=== PATIENT | male | born 1980 | race Two or more races ===

== ENCOUNTER 2017-02-06 08:57 | Observation (INO) | payer OTHER ==
[2017-02-06] VITALS (9 sets, daily range): BP systolic 127–151; BP diastolic 69–101; PULSE 52–95; RESP 16–20; TEMP 97.1–98; O2SAT 9–99
[~2017-02-06] VITALS: Ht 188 cm; Wt 114.5 kg
[~2017-02-06 08:57] MED LIST: COLC1TAB7 PO
[2017-02-06] MEDS ORDERED: SODIUM CHLOR 0.9% 1000 ML INJ 1,000 ML IV ONE (09:00)
--- NOTE | 2017-02-06 09:04 | PD ---
HPI Chief Complaint: Stroke Alert Time Seen by Provider: 09:00 Travel History International Travel<30 days: No Contact w/Intl Traveler<30days: No Traveled to known affect area: No History of Present Illness HPI PER PATIENT DIFFICULTY SPEAKING/SLURRED SPEECH 1HR AGO, DENIES ANY OTHER SYMPTOMS (DENIES ELLIOTT, LOC, DRUG USE, OR LATERALIZING WEAKNESS). PMH ONLY POSITIVE FOR PREDIABETIC PSH NEG ALL NEG PFSH Past Medical History Anxiety: Yes Heart Rhythm Problems: No (APPROX 1 YR AGO HAS FELT HEART RATE INCREASE, ABOUT EVERY OTHER MONTH) Cardiac Catheterization: No Cardiovascular Problems: No High Cholesterol: No Congestive Heart Failure: No Diabetes: No Diminished Hearing: No Hypertension: No Myocardial Infarction: No ?: Not Past Surgical History Coronary Artery Bypass Graft: No Social History Alcohol Use: No Tobacco Use: Yes Allergies-Medications (Allergen,Severity, Reaction): Coded Allergies: No Known Allergies (Verified , 02/06/17) Reported Meds & Prescriptions Reported Meds & Active Scripts Active Reported Dicyclomine (Dicyclomine HCl) 10 Mg Cap 10 Mg PO BID Ranitidine (Ranitidine HCl) 150 Mg Tab 150 Mg PO DAILY Review of Systems Except as stated in HPI: all other systems reviewed are Neg Neurologic: Positive: Slurred Speech Physical Exam Narrative GENERAL: SKIN: Warm and dry. HEAD: Atraumatic. Normocephalic. EYES: Pupils equal and round. No scleral icterus. No injection or drainage. NO DEFICITS BY CONFRONTATION ENT: No nasal bleeding or discharge. Mucous membranes pink and moist. NECK: Trachea midline. No JVD. CARDIOVASCULAR: Regular rate and rhythm. RESPIRATORY: No accessory muscle use. Clear to auscultation. Breath sounds equal bilaterally. GASTROINTESTINAL: Abdomen soft, non-tender, nondistended. Hepatic and splenic margins not palpable. MUSCULOSKELETAL: Extremities without clubbing, cyanosis, or edema. No obvious deformities. NEUROLOGICAL: Awake and alert. No obvious cranial nerve deficits. Motor grossly within normal limits. Five out of 5 muscle strength in the arms and legs. Normal speech. PSYCHIATRIC: Appropriate mood and affect; insight and judgment normal. Data Data Last Documented VS Vital Signs Date Time Temp Pulse Resp B/P Pulse Ox O2 Delivery O2 Flow Rate FiO2 02/06/17 10:32 70 18 127/69 99 Nasal Cannula 2 02/06/17 08:59 98.0 02/06/17 08:55 21 Orders Cath For Specimen (02/06/17 09:00) Neuro Checks Q2HX12,Q4H (02/06/17 09:00) Nursing Bedside Swallow Assess .ONCE (02/06/17 09:00) Activity Bed Rest (02/06/17 09:00) Diet Npo (02/06/17 Breakfast) Prothrombin Time / Inr (Pt) (02/06/17 09:00) Act Partial Throm Time (Ptt) (02/06/17 09:00) Complete Blood Count With Diff (02/06/17 09:00) Basic Metabolic Panel (Bmp) (02/06/17 09:00) Fibrinogen (02/06/17 09:00) Creatine Kinase (Cpk) (02/06/17 09:00) Troponin I (02/06/17 09:00) Drug Screen, Random Urine (02/06/17:00) Type And Screen (02/06/17 09:00) Ct Brain W/O Iv Contrast(Rout) (02/06/17 ) Cta Brain W Iv Contrast W 3d (02/06/17 09:00) Cta Neck W Iv Contrast W 3d (02/06/17 09:00) Chest, Single Ap (02/06/17 ) Electrocardiogram (02/06/17 ) Consult Neurology (02/06/17 09:00) Sodium Chlor 0.9% 1000 Ml Inj (Ns 1000 M (02/06/17 09:00) Blood Glucose (02/06/17 09:00) Ecg Monitoring (02/06/17 09:00) Iv Access Insert/Monitor (02/06/17 09:00) NPO (02/06/17 09:00) Oximetry (02/06/17 09:00) Oxygen Administration (02/06/17 09:00) Resp Oxygen Daniel C Titrat 1-4 L (02/06/17 09:00) Sodium Chlor 0.9% 1000 Ml Inj (Ns 1000 M (02/06/17 09:11) Aspirin (Aspirin) (02/06/17 09:15) Anti-Thrombin, Functional (02/06/17 09:15) Cardiolipin Abs Igg,Igm,Iga (02/06/17 09:15) Protein C Activity (02/06/17 09:15) Protein S Activity (02/06/17 09:15) Factor V (5) Mutation (Leiden) (02/06/17 09:15) Prothrombin [id number] Mutation (02/06/17 09:15) Lupus Anticoagulant Drvvt (02/06/17 09:15) Factor Viii (8) Activity Ref (02/06/17 09:15) Folate, Serum (02/06/17 09:15) Westergren Sedimentation Rate (02/06/17 09:15) Rapid Plasma Regin (Rpr) W Ttr (02/06/17 09:15) Nelda Screen (02/06/17 09:15) Thyroid Stimulating Hormone (02/06/17 09:15) Free Thyroxine (T4) (02/06/17 09:15) Vitamin B12 (02/06/17 09:15) Urinalysis - C+S If Indicated (02/06/17 09:15) Mri Brain W&W/O Contrast (02/06/17 09:15) Eeg Study (02/06/17 09:15) Echo 2d Comp With Doppler (02/06/17 09:15) Holter Monitor Recording (02/06/17 09:15) Test Tech / Telemetry LISA.Q8H (02/06/17 09:15) [place] (02/06/17 09:15) ^ Other Nursing Orders (02/06/17 09:15) Sodium Chlor 0.9% 1000 Ml Inj (Ns 1000 M (02/06/17 09:15) Lipid Profile (02/06/17 09:15) Scd&Teds Bilateral/Knee High LISA.QSHIFT (02/06/17 09:15) CKMB (02/06/17 09:00) CKMB% (02/06/17 09:00) (Hub Use Only)Inp Phy Cons/Ref (02/06/17 ) Iodixanol 320 Inj (Rad Ct) (Visipaque 32 (02/06/17 09:25) Admit Order (Ed Use Only) (02/06/17 10:29) Labs Laboratory Tests Test 02/06/17 02/06/17 09:00 09:40 White Blood Count 6.5 TH/MM3 Red Blood Count 5.47 MIL/MM3 Hemoglobin 15.5 GM/DL Hematocrit 46.0 % Mean Corpuscular Volume 84.2 FL Mean Corpuscular Hemoglobin 28.4 PG Mean Corpuscular Hemoglobin 33.7 % Concent Red Cell Distribution Width 13.7 % Platelet Count 302 TH/MM3 Mean Platelet Volume 7.5 FL Neutrophils (%) (Auto) 66.8 % Lymphocytes (%) (Auto) 20.5 % Monocytes (%) (Auto) 8.1 % Eosinophils (%) (Auto) 3.3 % Basophils (%) (Auto) 1.3 % Neutrophils # (Auto) 4.4 TH/MM3 Lymphocytes # (Auto) 1.3 TH/MM3 Monocytes # (Auto) 0.5 TH/MM3 Eosinophils # (Auto) 0.2 TH/MM3 Basophils # (Auto) 0.1 TH/MM3 CBC Comment DIFF FINAL Differential Comment Erythrocyte Sedimentation Rate 1 mm/hr Prothrombin Time 11.3 SEC Prothromb Time International 1.0 RATIO Ratio Activated Partial 29.1 SEC Thromboplast Time Fibrinogen 335 mg/dL Sodium Level 138 MEQ/L Potassium Level 3.9 MEQ/L Chloride Level 107 MEQ/L Carbon Dioxide Level 26.0 MEQ/L Anion Gap 5 MEQ/L Blood Urea Nitrogen 15 MG/DL Creatinine 1.10 MG/DL Estimat Glomerular Filtration 76 ML/MIN Rate Random Glucose 126 MG/DL Calcium Level 8.2 MG/DL Total Creatine Kinase 321 U/L Creatine Kinase MB 2.4 NG/ML Creatine Kinase MB % 0.7 % Troponin I LESS THAN 0.02 NG/ML Blood Type A POSITIVE Antibody Screen NEGATIVE Blood Bank Comment Triglycerides Level 50 MG/DL Cholesterol Level 98 MG/DL LDL Cholesterol 54 MG/DL HDL Cholesterol 34.2 MG/DL Cholesterol/HDL Ratio 2.86 RATIO Vitamin B12 Level 513 PG/ML Folate 17.4 NG/ML Free Thyroxine 1.03 NG/DL Thyroid Stimulating Hormone 0.754 uIU/ML 3rd Gen Rapid Plasma Reagin NON-REACTIVE MDM Medical Decision Making Medical Screen Exam Complete: Yes Emergency Medical Condition: Yes Medical Record Reviewed: Yes Interpretation(s) SINUS [place] 57, J POINT ELEVATION, NO ELECTRICAL ALTERNANT, NO LOW VOLTAGE FINDINGS, NO RECIPROCAL CHANGES/NO STEMI PATTERN Differential Diagnosis HYPOGLYCEMIA V ICH V CVA V DRUG INDUCED Narrative Course tox screen neg, neg hypoglycemia, and ct is neg for ich, patient showed marked improvement within hour Physician Communication Physician Communication D/W DR GARCIA (NEUROLOGIST), CURRENTLY BASED ON FINDINGS, NO TPA....AT 1000 PATIENT'S SLURRED SPEECH MUCH CLEARER AND NEARLY BACK TO BASELINE PER PATIENT, CONTINUES TO HAVE NO OTHER DEFICIT AT THIS POINT. Diagnosis Primary Impression: SLURRED SPEECH IMPROVING Admitting Information Admitting Physician Requests: Observation Migel Cristina MD Feb 06, 2017 09:04
[2017-02-06 09:07] LABS: AUTOMATED NEUTROPHIL # 4.4 TH/MM3 (1.8-7.7); BASOPHIL # 0.1 TH/MM3 (0-0.2); BASOPHIL % 1.3 % (0.0-2.0); EOSINOPHIL # 0.2 TH/MM3 (0-0.4); EOSINOPHIL % 3.3 % (0.0-4.0); HEMO FLAGS DIFF FINAL; LYMPH % 20.5 % (9.0-44.0); LYMPHOCYTE # 1.3 TH/MM3 (1.0-4.8); MEAN CELL VOLUME 84.2 FL (80.0-100.0); MEAN CORPUSCULAR HEMOGLOBIN 28.4 PG (27.0-34.0); MEAN CORPUSCULAR HGB CONC 33.7 % (32.0-36.0); MONO % 8.1 % (0.0-8.0); NEUT % 66.8 % (16.0-70.0); PLATELET COUNT 302 TH/MM3 (150-450); RED BLOOD COUNT 5.47 MIL/MM3 (4.50-5.90); RED CELL DISTRIBUTION WIDTH 13.7 % (11.6-17.2); WHITE BLOOD COUNT 6.5 TH/MM3 (4.0-11.0)
[2017-02-06] MEDS ORDERED: SODIUM CHLOR 0.9% 1000 ML INJ 1,000 ML IV SCH ×2 (09:11→09:15)
[2017-02-06 09:13] LABS: CHLORIDE 107 MEQ/L (98-107); POTASSIUM 3.9 MEQ/L (3.5-5.1); SODIUM (NA) 138 MEQ/L (136-145)
[2017-02-06] MEDS ORDERED: ASPIRIN 325 MG TAB PO ONE (09:15)
[2017-02-06 09:16] LABS: ANION GAP 5 MEQ/L (5-15); BLOOD UREA NITROGEN 15 MG/DL (7-18)
[2017-02-06 09:18] LABS: APTT (PATIENT) 29.1 SEC (24.3-30.1); PROTHROMBIN TIME - PATIENT 11.3 SEC (9.8-11.6)
[2017-02-06 09:19] LABS: GLOMERULAR FILTRATION RATE 76 ML/MIN (>89)
--- NOTE | 2017-02-06 09:20 | RADRPT ---
EXAM DATE/TIME: 02/06/2017 08:54 [facility] COMPARISON: No previous studies available for comparison. INDICATIONS : Stroke alert. Aphasia. Left side weakness. RADIATION DOSE: 66.27 CTDIvol (mGy) MEDICAL HISTORY : None SURGICAL HISTORY : None. ENCOUNTER: Initial ACUITY: 1 day PAIN SCALE: 0/10 LOCATION: cranial TECHNIQUE: Multiple contiguous axial images were obtained of the head. Using automated exposure control and adj ustment of the mA and/or kV according to patient size, radiation dose was kept as low as reasonably a chievable to obtain optimal diagnostic quality images. DICOM format image data is available electro nically for review and comparison. FINDINGS: CEREBRUM: The ventricles are normal for age. No evidence of midline shift, mass lesion, hemorrhage or acute in farction. No extra-axial fluid collections are seen. POSTERIOR FOSSA: The cerebellum and brainstem are intact. The 4th ventricle is midline. The cerebellopontine angle i s unremarkable. EXTRACRANIAL: The visualized portion of the orbits is intact. SKULL: The calvaria is intact. No evidence of skull fracture. CONCLUSION: Normal examination for a patient of this age. Jeison Maravilla MD on February 06, 2017 at 9:15 Board Certified Radiologist. This report was verified electronically.
[2017-02-06 09:22] LABS: CREATINE KINASE 321 U/L (39-308)
[2017-02-06] MEDS ORDERED: IODIXANOL 320 MG/ML 10 ML VIAL (for Rad CT) IV ONE (09:25)
--- NOTE | 2017-02-06 09:56 | RADRPT ---
EXAM DATE/TIME: 02/06/2017 09:27 [facility] COMPARISON: No previous studies available for comparison. INDICATIONS : Stroke alert.Aphasia. Left side weakness. MEDICAL HISTORY : None. SURGICAL HISTORY : None. ENCOUNTER: Initial ACUITY: 1 day PAIN SCORE: 0/10 LOCATION: Bilateral chest FINDINGS: Portable AP view of the chest demonstrates a normal-sized cardiac silhouette. No effusion, consolidat ion, or pneumothorax is visualized. The bones and soft tissues demonstrate no acute abnormality. CONCLUSION: No acute cardiopulmonary abnormality is identified. Cristi Coronado MD on February 06, 2017 at 9:40 Board Certified Radiologist. This report was verified electronically.
--- NOTE | 2017-02-06 09:58 | RADRPT ---
EXAM DATE/TIME: 02/06/2017 09:04 [facility] COMPARISON: No previous studies available for comparison. INDICATIONS : Stroke alert. Aphasia. Left sided weakness. IV CONTRAST: 100 cc Visipaque (iodixanol) IV ; Cumulative dose for multiple exams. RADIATION DOSE: 42.24 CTDIvol (mGy) ; Combined studies MEDICAL HISTORY : None SURGICAL HISTORY : None. ENCOUNTER: Initial ACUITY: 1 day PAIN SCALE: 0/10 LOCATION: neck Elevated flow velocities and ICA/CCA ratios have been found to correlate with increased degrees of vessel stenosis, calculated as percentage of diameter relative to a normal segment of distal ICA/CCA. TECHNIQUE: Volumetric scanning was performed using a multirow detector CT scanner. The data was post processed with a variety of visualization algorithms including full-volume maximum intensity projection, multip lanar sliding thin-slab reformation, curved-planar reformation, and surface-rendering techniques. Us ing automated exposure control and adjustment of the mA and/or kV according to patient size, radiatio n dose was kept as low as reasonably achievable to obtain optimal diagnostic quality images. DICOM f ormat image data is available electronically for review and comparison. FINDINGS: AORTIC ARCH: There is a three-vessel origin of the great vessels from the aorta. No evidence of ostial narrowing. RIGHT CAROTID: The common carotid artery is intact. The carotid bulb has a normal configuration without ulceration o r narrowing. The internal carotid artery lumen is smooth without stenosis. The external carotid keila ry is intact. LEFT CAROTID: The common carotid artery is intact. The carotid bulb has a normal configuration without ulceration or narrowing. The internal carotid artery lumen is smooth without stenosis. The external carotid ar rosalinda is intact. VERTEBRALS: The vertebral arteries have a symmetric diameter. Portions of the proximal right vertebral artery ar e obscured due to dense contrast in the adjacent vein. No stenotic lesions are seen. CONCLUSION: 1. Unremarkable CTA examination. No significant flow-limiting stenosis or dissection. Higinio Mirza MD on February 06, 2017 at 9:51 Board Certified Radiologist. This report was verified electronically.
--- NOTE | 2017-02-06 10:01 | RADRPT ---
EXAM DATE/TIME: 02/06/2017 09:04 [facility] COMPARISON: No previous studies available for comparison. INDICATIONS : Stroke alert. Aphasia. Left sided weakness. IV CONTRAST: 100 cc Visipaque (iodixanol) IV ; Cumulative dose for multiple exams. RADIATION DOSE: 42.24 CTDIvol (mGy) ; Combined studies MEDICAL HISTORY : None SURGICAL HISTORY : None. ENCOUNTER: Initial ACUITY: 1 day PAIN SCALE: 0/10 LOCATION: cranial TECHNIQUE: Volumetric scanning was performed using a multi-row detector CT scanner. The data was post processed with a variety of visualization algorithms including full volume maximum intensity projection, multi -planar sliding thin slab reformation, curved planar reformation, and surface rendering techniques. Using automated exposure control and adjustment of the mA and/or kV according to patient size, radiat ion dose was kept as low as reasonably achievable to obtain optimal diagnostic quality images. DICO M format image data is available electronically for review and comparison. FINDINGS: Anterior circulation: The distal internal carotid arteries demonstrate no abnormality or atherosclerotic change. A1 segment s and more distal anterior cerebral arteries are symmetric and within normal limits. The middle cereb ral artery branches demonstrate symmetric enhancement. No aneurysm or high-grade stenosis is identifi ed. Posterior circulation: There are patent posterior cerebral arteries bilaterally. Vertebral arteries are codominant. The basi lar artery and posterior cerebral arteries demonstrate no significant stenosis or abnormality. No ane urysm is visualized. CONCLUSION: No intracranial vascular abnormality is identified. Cristi Coronado MD on February 06, 2017 at 9:55 Board Certified Radiologist. This report was verified electronically.
[2017-02-06] MEDS ORDERED: RANI150T PO (10:02)
[2017-02-06] MEDS ORDERED: DICY10CA12 PO (10:02)
[2017-02-06 10:19] LABS: CKMB 2.4 NG/ML (0.5-3.6)
[2017-02-06 10:57] LABS: BLOOD, URINE NEG (NEG); GLUCOSE,URINE NEG (NEG); KETONE, URINE NEG (NEG); NITRITE,URINE NEG (NEG); PH, URINE 6.5 (5.0-8.5)
[2017-02-06 11:08] LABS: METHOD OF COLLECTION CLEAN CATCH; URINE COLOR STRAW (YELLW/STRAW); WBC, URINE 0-2 /hpf (0-5)
[2017-02-06 11:09] LABS: COMMENT (UR) CULT NOT INDICATED; CULTURE IF INDICATED CULT NOT INDICATED
[2017-02-06 11:21] LABS: BARBITURATES, URINE NEG (NEG)
[2017-02-06 11:22] LABS: AMPHETAMINE, URINE NEG (NEG); COCAINE, URINE NEG (NEG)
[2017-02-06] MEDS ORDERED: GADODIAMIDE PF 287 MG/ML 5 ML VIAL (for RAD MRI) IV ONE (12:14)
--- NOTE | 2017-02-06 12:32 | MH ---
cc: ELIER CHASE M.D. DATE OF ADMISSION 02/06/2017 DATE OF 1980 ADMISSION DIAGNOSIS Possible TIA PERTINENT HISTORY This is a 36-year-old male who was at work this morning around 07:40 a.m. when he started experiencing some sensation and his field of vision was moving back and forth. He states he did not have blurring of his vision, but it just seems like things in his field of vision were rocking back and forth. He felt a little slight sensation as if he was rocking back and forth and subsequently felt lightheaded. He had no headache. He has had some tingling in his face and also in his left arm. 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 Co-worker thought maybe this speech was a little slurred. He had no double vision or headache. No palpitations of his heart. No trouble swallowing. No confusion. He had no weakness in his legs. He states he was fine when he got up this morning. He has had no history of a stroke or hypertension. He recently who had some blood work done and told he had some pre-diabetes. He did have a history of generalized seizure disorder from a very young age until age 15 when he went off his Tegretol and has not had a seizure since then. He states his symptoms have resolved. In the ED, a CT brain scan showed no acute process. The ER physician discussed the case with the neurologist, Dr. Chicas who recommended admission and putting him on aspirin and doing follow up tests. MEDICAL HISTORY 1. As mentioned, he was recently diagnosed was pre-diabetes. 2. He recently was seen and walk-in clinic at [facility] for some possible gastritis and diarrhea. He was put on ranitidine that he takes twice a day. He was given dicyclomine to take as needed for any bowel spasms. 3. He has had no heart attack, angina, CHF. He had a negative treadmill stress test back around 2005 when he was hospitalized for palpitations. Treadmill stress test was negative. 4. He has had no hypertension, liver or kidney disease, colon disease, never been diagnosed with any ulcers. 5. Never a stroke. He had prior generalized seizure disorder as Mentioned. 6. No thyroid disease. PAST SURGICAL HISTORY He had arthroscopy of his right knee several years ago. ALLERGIES None MEDICATIONS 1. He has just recently was put on Ranitidine 150 mg twice a day. 2. Dicyclomine 10 mg three to four times a day as needed. 3. He states he was on antibiotics for diarrhea that he is no longer on. FAMILY HISTORY He does not really know his father. He has not had any contact with him. He does not know much about his health. His mother has diabetes. 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 He is single. He does not use alcohol. He does smoke marijuana occasionally. He has an occasional cigarette, but not on a daily basis. He did start smoking at 20, but he states he usually has never smoked more than a couple of cigarettes a day if he did smoke. REVIEW OF SYSTEMS GENERAL: No fever, chills or sweats. HEENT: No headache. No sore throat or runny nose. No hearing complaints. CARDIOVASCULAR: No chest pain, orthopnea, PND. PULMONARY: No cough, hemoptysis, or wheezing. GI: He still gets occasional loose bowel movements, but denies any nausea, vomiting, or abdominal pain. No rectal bleeding. : Without complaints. MUSCULOSKELETAL: He gets occasional low back ache, but no neck pain or other complaints. SKIN: Without rash. NEUROLOGIC: As mentioned. EXAMINATION This is a pleasant male in no acute distress. He is alert and oriented. VITAL SIGNS: His BP initially was 147/101, most recently checked was 127/69, pulse 70 and regular, respirations 18th. O2 sats good. HEENT: TMs clear. Pupils equal. Sclerae nonicteric. Nose without lesion. Mouth without inflammation or lesion. NECK: Without JVD. No bruit. HEART: Regular rate and rhythm. No murmur. LUNGS: Clear. ABDOMEN: Soft and nontender, no masses. EXTREMITIES: No edema. Pulses palpated both feet. SKIN: No rash. NEUROLOGIC: Oriented x3. Cranial nerves intact. Motor sensory intact. We did not ambulate him. LABORATORY His BUN 15, creatinine 1.1, random glucose 126, calcium 8.2, CK-MB was normal and MB percent normal, total CK was 321. Sodium, potassium chloride, CO2 normal. Troponin less than 0.02. Thyroid studies, B12, folate and lipid panel are pending. A urine drug screen was positive for cannabinoids. IMAGING STUDIES He had a CT brain scan that was negative. Chest x-ray showed no acute cardiopulmonary abnormality. A CTA of the neck was unremarkable with no significant flow-limiting stenosis or dissection. A CTA of the head showed no intracranial or vascular abnormality. EKG shows what appears to be a sinus rhythm with no acute ST-T wave changes. ASSESSMENT As noted. PLAN He has been put on aspirin [address] Chicas was consulted for neurology evaluation. He has orders a bunch of neurological tests with some of them already completed as mentioned. A 2-D echo, Holter monitor and MRI brain scan has been ordered and not yet done. We will maintain him on ranitidine 150 mg twice a day. DISCHARGE DISPOSITION As per when he will be able to be discharge when neurology clears him for discharge. MD CYNDI Moreira/MISSY /11:56 AM /12:15 PM
[2017-02-06 13:42] LABS: RAPID PLASMA REAGIN SCREEN NON-REACTIVE (NON-REACTVE)
[2017-02-06 14:06] LABS: FREE T4 1.03 NG/DL (0.76-1.46); HDL CHOLESTEROL 34.2 MG/DL (40.0-60.0)
[2017-02-06] MEDS: FAMOTIDINE 20 MG TAB PO SCH (14:47)
--- NOTE | 2017-02-06 15:06 | EKG ---
Date Performed: 02/06/2017 Time Performed: 09:30:12 PTAGE: 36 years EKG: SINUS BRADYCARDIA ST ELEVATION, PROBABLY EARLY REPOLARIZATION BORDERLINE ECG PREVIOUS TRACING : 06/06/2006 09.26 Since previous tracing, no significant change noted DOCTOR: Frida Alvarez Interpretating Date/Time 02/06/2017 15:05:56
--- NOTE | 2017-02-06 15:15 | RADRPT ---
EXAM DATE/TIME: 02/06/2017 12:04 [facility] COMPARISON: No previous studies available for comparison. INDICATIONS : CVA. Slurred speech right sided weakness and right facial droop. Lightheaded and dizzy. CONTRAST: 25 cc Omniscan (gadodiamide) IV MEDICAL HISTORY : None. SURGICAL HISTORY : Orthoscopic knee surgery. ENCOUNTER: Initial ACUITY: 1 day PAIN SCORE: 0/10 LOCATION: Head. TECHNIQUE: Multiplanar, multisequence MRI of the brain was performed both prior to and following the administrat ion of paramagnetic contrast. FINDINGS: CEREBRUM: The ventricles are normal for age. No evidence of midline shift, mass lesion, hemorrhage or acute in farction. No extraaxial fluid collections are seen. The pituitary gland and suprasellar cistern are normal in configuration. WHITE MATTER: No significant signal abnormalities are seen in the white matter. POSTERIOR FOSSA: The cerebellum and brainstem are intact. The 4th ventricle is midline. The cerebellopontine angle is unremarkable. The cerebellar tonsils are normal in position. DIFFUSION IMAGING: No focal areas of restricted diffusion are seen. No evidence of acute infarction. EXTRACRANIAL: The visualized portions of the orbits and paranasal sinuses are unremarkable. POST-CONTRAST: No abnormal areas of parenchymal or dural enhancement. No evidence of blood-brain barrier breakdown. CONCLUSION: Normal examination for a patient of this age. Jeison Maravilla MD on February 06, 2017 at 15:09 Board Certified Radiologist. This report was verified electronically.
--- NOTE | 2017-02-06 18:40 | MB ---
cc: ALVARADO GARCIA M.D. DATE OF CONSULTATION 02/06/17 HISTORY OF PRESENT ILLNESS A 36-year-old right-handed man with some evidently mildly elevated sugars recently diagnosed and some chest pain last was about 3 weeks ago but has been bilateral chest pain, some peptic ulcer disease. He had seizures as a child. He was on Tegretol for a while. Seizures from about 6 months to 15 years old, some complex partial seizures and also grand mal seizures. He has a lot of D j vu, maybe three times a week actually but no other seizure type symptoms recently. He has had a little bit of dizziness in the last several months and then he leaned forward in the truck today and he felt like he was spinning somewhat. He sat down. He felt like his right upper extremity was a little bit heavy and he had some tingling on his wrist on the right side. Occasionally he does have some numbness and tingling in the median nerve distribution on the right. He felt like he had ache type pain in the right arm although at other times he has had tingling in other parts of his body over the last year or so. His speech then was a little bit slurred. He came in as a possible stroke alert. They had called me and all he had was some slurred speech at that time so we did not give him any TPA as his deficit was minimal. NIH stroke scale being about a 1 at that time over the phone. REVIEW OF SYSTEMS Denies any of hypertension, hypercholesterolemia, CABG, a-fib, stent angioplasty. He does not take any aspirin or blood thinners. He denies any palpitations. Denies any history of renal, hepatic or pulmonary disease, thyroid disease, lupus, cancer, stroke. No vision changes. SOCIAL HISTORY Occasionally has a cigarette. Not a drinker. He lives by himself. No drugs. FAMILY HISTORY Positive for cancer. Positive for seizures in his mother. Positive stroke. No miscarriages or blood clots in the family according to the patient. PAST MEDICAL HISTORY As above and also history of negative treadmill test back in 2005. ALLERGIES NO KNOWN DRUG ALLERGIES. MEDICATIONS Recently started ranitidine and dicyclomine p.r.n. PHYSICAL EXAMINATION VITAL SIGNS: On exam EKG showed sinus rhythm, afebrile, 56, 20, 148/88. NECK: No carotid or vertebral bruits. HEART: Regular rate and rhythm. I did not detect a murmur. NEURO: Pupils are equal. Visual hernadez are full. Extraocular movements intact without nystagmus. Hallpike maneuver was negative bilaterally. Face was symmetric with normal sensation. Tongue was midline. There is no drift. He had normal strength in upper and lower extremities bilaterally. DTRs trace. Toes downgoing bilaterally. Pinprick is intact throughout except for the right median nerve distribution. He is not ataxic on [id number]. Speech is fluent. He is not aphasic. LABORATORY DATA CBC is normal. Sed rate is normal. RPR negative. RAI and hyper coags pending. Urine drug screen positive for marijuana only. UA is negative. Coags are normal so far. His labs today, his basic metabolic profile, CPK, troponin were normal. B12, folate, TSH, LDL cholesterol normal. IMAGING STUDIES MRI of the brain is normal. I reviewed those films. No infarcts, no abnormalities in the temporal lobe seen. Mastoid looks fine. CTA of the neck and nap[place] of [place] were read as normal. Vertebral arteries and vertebral basilar system was normal on the CTA as was the carotid system. IMPRESSION Concerning that these symptoms for possible TIA. I put him on an aspirin. Will check an echo and a Holter on him. He has had some chest pain and I would defer to Dr. Mayorga whether he needs cardiology to evaluate him for that. Hyper coag screen was ordered. Otherwise, his workup has been negative to date and if his echo was negative and if cardiology clears him if thought appropriate by the primary care he could go home just on an 81 of aspirin a day. Will also check an EEG on him here as he tells me he has Sherice davila three times a week which could be small complex partial seizures. He has never had any other manifestation of seizures since he was 15 and no longer takes seizure medications. MD COCO Escalante/MIKO /5:28 PM /6:17 PM
--- NOTE | 2017-02-06 18:58 | MG ---
cc: CANDIE BARGER M.D. Lab No: [id number] Date: 02/06/2017. Age: M Race: TECHNIQUE: 17 channel EEG. DESCRIPTION: The background rhythm reveals a symmetrical alpha rhythm. Frequency is 8-12 Hz. Amplitude is about 20-40 microvolts. There is some muscle artifact present and occasional eye movement artifact present. During drowsiness, there is mild slowing in the theta range. No lateralizing features are seen. No epileptiform features are seen. There does appear to be sleep activity and then there are some vertex sharp waves present. Photic stimulation results in a symmetrical driving response. INTERPRETATION: Normal EEG. MD SHANKAR Elizabeth/JANAK /6:44 PM /6:49 PM
[2017-02-07 00:01] VITALS: BP 119/73; PULSE 57; RESP 16; TEMP 97.1; O2SAT 98
[2017-02-07 04:02] VITALS: BP 141/89; PULSE 52; RESP 16; TEMP 97; O2SAT 100
[2017-02-07 08:00] VITALS: BP 144/85; PULSE 52; PULSE 90; RESP 20; TEMP 96.2; O2SAT 98
--- NOTE | 2017-02-07 08:14 | HHI.PR ---
Subjective Remarks He has no complaints today. In reading the neurologist note he mentioned that the patient mentioned to him that he had been having some occasional chest pain. I had asked him when I examined him initially if he had any chest pain or palpitations and he had denied that yesterday. When I asked him today about this he stated he did not have any chest pain associated with his symptoms that caused him to come to the ER. He did however state he had a brief episode of chest pain in the mid chest about 3 weeks ago that lasted < 2-3 minutes and that he had occasionally had similar episodes since earlier this year. He just thought it was maybe a muscle spasm so he never thought much about it. The pain when it occurs is nonradiating and not associated with any sweating or diaphoresis. It is sharp for a few seconds and then lessens as a dull pain until it resolves. He had a prior TMST around 2005 when he had heart palpitations and it was negative. He has no further neurological symptoms. The neurologist is just recommending he take a baby aspirin a day. His only test still pending that was ordered by neurology is a 2D echo. Objective Vitals Vital Signs Date Time Temp Pulse Resp B/P Pulse Ox O2 Delivery O2 Flow Rate FiO2 02/07/17 04:02 97.0 52 16 141/89 100 02/07/17 00:01 97.1 57 16 119/73 98 02/06/17 20:31 97.5 52 16 140/80 96 02/06/17 19:37 98 21 02/06/17 16:00 97.1 56 20 148/88 99 02/06/17 12:50 95 02/06/17 12:30 97.4 54 20 134/73 98 02/06/17 10:32 70 18 127/69 99 Nasal Cannula 2 02/06/17 10:30 Nasal Cannula 2.00 02/06/17 09:29 70 18 151/85 99 Nasal Cannula 2 02/06/17 09:10 99 Nasal Cannula 2 02/06/17 08:59 98.0 77 18 147/101 98 02/06/17 08:55 21 02/06/17 02/06/17 02/07/17 15:00 23:00 07:00 Intake Total 240 ml 840 ml Balance 240 ml 840 ml Intake Oral 240 ml 840 ml # Voids 1 2 2 Result Diagram: 02/06/17 0900 02/06/17 0900 Other Results Laboratory Tests Test 02/06/17 02/06/17 02/06/17 09:00 09:40 10:45 White Blood Count 6.5 TH/MM3 Red Blood Count 5.47 MIL/MM3 Hemoglobin 15.5 GM/DL Hematocrit 46.0 % Mean Corpuscular Volume 84.2 FL Mean Corpuscular Hemoglobin 28.4 PG Mean Corpuscular Hemoglobin 33.7 % Concent Red Cell Distribution Width 13.7 % Platelet Count 302 TH/MM3 Mean Platelet Volume 7.5 FL Neutrophils (%) (Auto) 66.8 % Lymphocytes (%) (Auto) 20.5 % Monocytes (%) (Auto) 8.1 % Eosinophils (%) (Auto) 3.3 % Basophils (%) (Auto) 1.3 % Neutrophils # (Auto) 4.4 TH/MM3 Lymphocytes # (Auto) 1.3 TH/MM3 Monocytes # (Auto) 0.5 TH/MM3 Eosinophils # (Auto) 0.2 TH/MM3 Basophils # (Auto) 0.1 TH/MM3 CBC Comment DIFF FINAL Differential Comment Erythrocyte Sedimentation Rate 1 mm/hr Prothrombin Time 11.3 SEC Prothromb Time International 1.0 RATIO Ratio Activated Partial 29.1 SEC Thromboplast Time Fibrinogen 335 mg/dL Sodium Level 138 MEQ/L Potassium Level 3.9 MEQ/L Chloride Level 107 MEQ/L Carbon Dioxide Level 26.0 MEQ/L Anion Gap 5 MEQ/L Blood Urea Nitrogen 15 MG/DL Creatinine 1.10 MG/DL Estimat Glomerular Filtration 76 ML/MIN Rate Random Glucose 126 MG/DL Calcium Level 8.2 MG/DL Total Creatine Kinase 321 U/L Creatine Kinase MB 2.4 NG/ML Creatine Kinase MB % 0.7 % Troponin I LESS THAN 0.02 NG/ML Blood Type A POSITIVE Antibody Screen NEGATIVE Blood Bank Comment Triglycerides Level 50 MG/DL Cholesterol Level 98 MG/DL LDL Cholesterol 54 MG/DL HDL Cholesterol 34.2 MG/DL Cholesterol/HDL Ratio 2.86 RATIO Vitamin B12 Level 513 PG/ML Folate 17.4 NG/ML Free Thyroxine 1.03 NG/DL Thyroid Stimulating Hormone 0.754 uIU/ML 3rd Gen Rapid Plasma Reagin NON-REACTIVE Urine Collection Type CLEAN CATCH Urine Color STRAW Urine Turbidity CLEAR Urine pH 6.5 Urine Specific [place] 1.026 Urine Protein NEG mg/dL Urine Glucose (UA) NEG mg/dL Urine Ketones NEG mg/dL Urine Occult Blood NEG Urine Nitrite NEG Urine Bilirubin NEG Urine Leukocyte Esterase NEG Urine WBC 0-2 /hpf Microscopic Urinalysis Comment CULT NOT INDICATED Urine Opiates Screen NEG Urine Barbiturates Screen NEG Urine Amphetamines Screen NEG Urine Benzodiazepines Screen NEG Urine Cocaine Screen NEG Urine Cannabinoids Screen POS Imaging Last Impressions Brain MRI 02/06/1715 Signed Impressions: Service Date/Time: February 12:04 - CONCLUSION: Normal examination for a patient of this age. Jeison Maravilla MD Neck CTA 02/06/17 0900 Signed Impressions: Service Date/Time: , February 06, 2017 09:04 - CONCLUSION: 1. Unremarkable CTA examination. No significant flow-limiting stenosis or dissection. Higinio Mirza MD Head CTA 02/06/17 0900 Signed Impressions: Service Date/Time: February 09:04 - CONCLUSION: No intracranial vascular abnormality is identified. Cristi Coronado MD Head CT 02/06/17 0000 Signed Impressions: Service Date/Time: February 08:54 - CONCLUSION: Normal examination for a patient of this age. Jeison Maravilla MD Chest X-Ray 02/06/17 0000 Signed Impressions: Service Date/Time: February 09:27 - CONCLUSION: No acute cardiopulmonary abnormality is identified. Cristi Coronado MD EEG is normal. Objective Remarks Exam: WDWN male in no distress. HEENT: Pupils equal, no scleral icterus, mouth negative Neck: No JVD, no bruit Heart: RRR with no murmur or gallops Lungs: Clear Abdomen: soft, nontender, no masses Extremities: No edema, pulses palpated Neuro: Alert, oriented, normal motor and sensory exam Medications and IVs Assessment: --Possible TIA--etiology unknown (2D echo still pending but other tests negative ) --History of intermittent episodes of brief chest pain for several months Plan: His 2D echo is pending so once that is back later today he should be able to be discharged. I will order a Lexiscan today because of his history of chest pain. He should be able to discharged later today if these tests are negative. He will followup with his PCP within one week and take a baby aspirin daily and continue on his Ranitidine he was recently started on. Sebastian Mayorga MD Feb 07, 2017 08:14
[2017-02-07] MEDS: FAMOTIDINE 20 MG TAB PO SCH ×2 (10:11→10:30)
[2017-02-07] MEDS: ASPIRIN EC 81 MG TABEC PO SCH ×2 (10:11→10:30)
[2017-02-07 11:27] LABS: ANA SCREEN NEG (NEG)
[2017-02-07 12:00] VITALS: BP 149/89; PULSE 61; RESP 20; TEMP 97.2; O2SAT 97
--- NOTE | 2017-02-07 12:48 | ECHRPT ---
Indication: cva/tia CONCLUSIONS The left ventricular systolic function is normal with an estimated ejection fraction in the range of 60-65%. Trace mitral valve regurgitation. There is mild tricuspid valve regurgitation. BP: / HR: Rhythm: MEASUREMENTS (Male / Female) Normal Values Technical Quality:Good 2D ECHO LV Diastolic Diameter PLAX 4.7 cm 4.2 - 5.9 / 3.9 - 5.3 cm LV Systolic Diameter PLAX 3.4 cm IVS Diastolic Thickness 1.3 cm 0.6 - 1.0 / 0.6 - 0.9 cm LVPW Diastolic Thickness 0.9 cm 0.6 - 1.0 / 0.6 - 0.9 cm LV Relative Wall Thickness 0.5 RV Internal Dim ED PLAX 3.5 cm M-MODE Aortic Root Diameter MM 3.2 cm LA Systolic Diameter MM 3.9 cm LA Ao Ratio MM 1.2 AV Cusp Separation MM 2.6 cm DOPPLER Mitral E Point Velocity 75.0 cm/s Mitral A Point Velocity 47.9 cm/s Mitral E to A Ratio 1.6 LV E' Lateral Velocity 8.8 cm/s Mitral E to LV E' Lateral Ratio 8.6 LV E' Septal Velocity 12.1 cm/s Mitral E to LV E' Septal Ratio 6.2 TR Peak Velocity 267.0 cm/s TR Peak Gradient 28.5 mmHg FINDINGS LEFT VENTRICLE Normal left ventricular size. There is mild assymetric septal hypertrophy. The left ventricular systolic function is normal with an estimated ejection fraction in the range of 60-65%. No regional wall motion abnormalities are present. RIGHT VENTRICLE Normal right ventricular size and systolic function. LEFT ATRIUM The left atrial size is upper limits of normal. RIGHT ATRIUM The right atrial size is normal. ATRIAL SEPTUM Normal atrial septal thickness without atrial level shunting by limited color doppler interrogation. AORTA The aortic root and proximal ascending aorta are normal in size on limited imaging. MITRAL VALVE Structurally normal mitral valve. Trace mitral valve regurgitation. No mitral valve stenosis. AORTIC VALVE Trileaflet aortic valve. No aortic valve stenosis or regurgitation. TRICUSPID VALVE Structurally normal tricuspid valve. There is mild tricuspid valve regurgitation. The estimated pulmonary arterial pressure is __28 mmHg. PULMONARY VALVE The pulmonary valve is not well visualized. VESSELS The inferior vena cava is normal in size. PERICARDIUM No pericardial effusion. Alvaro Douglass DO (Electronically Signed) Final Date:07 February 2017 12:47
[2017-02-07] MEDS ORDERED: ASPI-99 PO (13:22)
--- NOTE | 2017-02-07 13:59 | TR ---
Date Performed: 02/07/2017 Time Performed: 09:46:12 DOCTOR: Frida Alvarez DRUG LIST: CLINICAL HISTORY: CHEST PAIN REASON FOR TEST: Chest pain REASON FOR ENDING: Completed Protocol OBSERVATION: Arrhythmia: None Chest Pain: None CONCLUSION: Patient tolerated BASHIR protocol with Total Exercise Time=10:05 Maximum TF=087 % Max HR Achieved=94.0% Maximum YQ=616/82, Patient asymptomatic throupout test. Testing stopped secondary to goals acheived, Patient reached target HR. During peak exercise, patient had quick upsloping ST se gments, No significant ST depressions, HR and BP appropriate response to exercise. Recovery period, H R and BP returned to baseline COMMENTS:
[2017-02-07 14:01] VITALS: O2SAT 97
--- NOTE | 2017-02-08 13:44 | HM ---
Date Performed: 02/06/2017 Time Performed: 16:56:00 HOOKUP DATE: 02/06/17 04:56:00 PM Casandra ANALYSIS START TIME: 02/06/2017 5:01:00 PM ANALYSIS END TIME: 02/07/2017 2:15:21 PM PATIENT AGE: 36 PATIENT HEIGHT PATIENT WEIGHT: 275 DRUG LIST PATIENT DIAGNOSIS: Left sided weakness/CVA TEST NARRATIVE: The patient's average heart rate was 59 BPM. Heart rates greater than 120 B PM were noted < 1% of the time. Heart rates less than 50 BPM were noted 44% of the time. No paus es exceeding 2.0 seconds were noted. 1 ventricular ectopics, which represented < 1% of the total beat count, were noted. The highest ventricular ectopic frequency occurred from 01:00 AM to 02:00 AM Fri. During this time 1 VE(s) occurred. Ventricular ectopics were observed as 1 isolated beat(s) o nly. No couplets or runs were noted. No supraventricular ectopics were noted. No episodes of ST depression (defined as -1.0 mm or more) were noted in channel 1. No episodes of ST depression (d efined as -1.0 mm or more) were noted in channel 2. No episodes of ST depression (defined as -1.0 mm or more) were noted in channel 3. No diary events were reported by the patient. TEST INTERPRETATION: The patient was monitored for 21 hours, 14 minutes. The minimum heart rate was 40 bpm and the maximum heart rate was 174 bpm. The average heart rate was 59 bpm. The underlyi ng rhythm is a normal Sinus rhythm . CONCLUSION: Normal sinus rhythm Sinus arrhythmia presumably in his sleep No atrial fibrillation see n Sinus tachycardia at times probably normal for age Signed by : Kristine Mckeon
[2017-02-09 03:52] LABS: THROMBIN TIME FOR LA ND sec (13-19)
== END 2017-02-07 14:42 | disposition home or self-care (01) ==
LOC: PHED 08:57 → PHEDA 10:32 → PH3B 11:45
PROVIDERS: ADMIT Family Medicine; ATTEND Family Medicine
DX: R47.81 Slurred speech (principal); R07.9 Chest pain, unspecified; F41.9 Anxiety disorder, unspecified; R73.03 Prediabetes; K27.9 Peptic ulcer, site unspecified, unspecified as acute or chronic, without hemorrhage or perforation; F17.210 Nicotine dependence, cigarettes, uncomplicated; F12.90 Cannabis use, unspecified, uncomplicated
CPT/HCPCS: 70450; 70496; 70498; 70553; 71010; 80048; 80061; 80307; 81001; 81240; 81241; 82550; 82552; 82607; 82746; 84439; 84443; 84484; 85025; 85240; 85300; 85303; 85306; 85384; 85610; 85613; 85652; 85730; 86038; 86147; 86592; 86850; 86900; 86901; 93005; 93017; 93225; 93226; 93306; 95819; 96360; 99285; A9579; G0378; J7030; Q9967